=== PATIENT | female | born 1950 | race Caucasian/White ===

== ENCOUNTER 2016-09-09 07:54 | Day surgery (SDC) | payer OTHER ==
[~2016-09-09] VITALS: Ht 160 cm; Wt 72.7 kg
[~2016-09-09 07:54] MED LIST: MULT-65 PO; OXYC-360 PO
[2016-09-09 08:27] VITALS: BP 149/94; PULSE 82; RESP 20; TEMP 97.8; O2SAT 94
[2016-09-09] MEDS ORDERED: POVIDONE IODINE 5% (ANTISEPSIS KIT) 4 APPLICATIONS EACH NARE SCH (08:45)
[2016-09-09] MEDS ORDERED: ceFAZolin 2 GM PREMIX 50 ML - implanted port/tunneled catheter insertion IV SCH (08:45)
[2016-09-09] MEDS ORDERED: VANCOMYCIN 1000 MG/NS 250 ML - implanted port/tunneled catheter IV SCH ×2 (08:45)
[2016-09-09] MEDS ORDERED: SODIUM CHLORIDE 0.9% 1000 ML IV SCH (08:45)
[2016-09-09] MEDS ORDERED: CHLORHEXIDINE GLUCONATE 2 % 1 PACK (2 CLOTHS) TOPICAL SCH (08:45)
[2016-09-09] MEDS ORDERED: MIDAZOLAM HCL 5 MG/5 ML VIAL ONE (09:40)
[2016-09-09] MEDS ORDERED: fentaNYL CITRATE 250 MCG/5 ML AMP ONE (09:40)
[2016-09-09] MEDS ORDERED: LIDOCAINE 1%/EPINEPHrine 1:100,000 SOLN 20 ML VIAL ONE (09:58)
[2016-09-09 11:05] VITALS: BP 114/68; PULSE 80; RESP 16; TEMP 98.1; O2SAT 95
[2016-09-09 11:20] VITALS: BP 110/64; PULSE 78; RESP 18
--- NOTE | 2016-09-09 11:22 | PD.RAD ---
Post Procedure Progress Note Pre Procedure Diagnosis: (1) Lung cancer Post Procedure Diagnosis: (1) Lung cancer Procedure Date: Sep 09, 2016 Supervising Radiologist: Severino Centeno JR Proceduralist/Assist: Rajwinder De Anda, RT(R), Jethro Buchanan RT(R) Anesthesia: Conscious Sedation Plan of Activity Patient to Unit: ROPU Patient Condition: Good See PACS Report for procedural detail/treatment Central Venous Access Device Procedure 1 Right Internal Jugular Infusaport Placement single lumen [place]: 8 Findings: Port in good position and functions well. OK to use. Plan F/U with IR or a physician in 10-14 days for a site check Jr. Jacobo,Severino Tapia MD Sep 09, 2016 11:22
[2016-09-09] MEDS ORDERED: SODIUM CHLORIDE 0.9% FLUSH 5 ML FLUSH IVF PRN (11:30)
[2016-09-09 11:50] VITALS: BP 120/68; PULSE 85; RESP 18; O2SAT 93
[2016-09-09 12:20] VITALS: BP 101/66; PULSE 85; RESP 18; O2SAT 93
[2016-09-09 13:00] VITALS: BP 115/66; PULSE 85; RESP 18; O2SAT 93
--- NOTE | 2016-09-09 13:31 | RADRPT ---
EXAM DATE/TIME: 09/09/2016 08:41 [facility] COMPARISON: No previous studies available for comparison. INDICATIONS : Patient with history of lung cancer in need of port placement. MEDICAL HISTORY : 1.Lung cancer 2.Osteoporosis 3.Hemorrhoids SURGICAL HISTORY : 1.Right thoracotomy 2.Right upper lobectomy 3.Appendectomy 4.Hysterectomy 5.Cataract 6.Colonscopy ENCOUNTER: Initial ACUITY: 2 weeks PAIN SCORE: 0/10 FLUORO TIME: 0.6 minutes IMAGE SERIES: SEDATION TIME: 30 minutes ACCESS: Right internal jugular vein SEDATION: 1.) 5 mg midazolam (Versed) IV 2.) 250 mcg fentanyl (Sublimaze) IV Prophylactic antibiotics were administered with appropriate pre-procedure timing. Vancomycin within 2 hours of procedure, Ancef (or alternative) within 1 hour of procedure. DEVICE: 1. 8 Taiwanese single lumen Wufdlr-a-[id number] PROCEDURE : 1. Continuous pulse oximetry and EKG monitoring. 2. Intravenous conscious sedation. 3. Ultrasound guidance for venous access. 4. Fluoroscopic guided implantable central venous port placement. The patient was placed supine. The neck was prepped in sterile fashion. Full sterile technique was u sed, including cap, mask, sterile gloves and gown, and a large sterile sheet. Hand hygiene and 2% ch lorhexidine Betadine was utilized per protocol for cutaneous antisepsis with appropriate dry time for site. The skin and subcutaneous tissues were infiltrated with local anesthetic solution. Under direct ultrasound guidance, central venous access was accomplished in the targeted vessel. The ultrasound images depicting access guidance were stored and saved to PACS for permanent record. A s ubcutaneous pocket was created using blunt dissection. The port was introduced to the pocket. The c atheter tubing was fed through a subcutaneous tunnel to the venotomy site. The catheter tubing was c ut to a suitable length and then was introduced through a valved Peel-Away sheath and positioned with catheter tubing tip at the cavo-atrial junction level. The pocket incision was closed with subcutic ular Vicryl suture. Steri-Strips were applied. The port was flushed and locked with heparin solutio n per protocol. Sterile dressing was applied to the site. The patient tolerated the procedure well. Conscious sedation was performed with the prescribed dosages and duration as above in the presence of an independent trained radiology nurse to assist in the monitoring of the patient. EKG and oximetry remained stable throughout the procedure. The patient tolerated the procedure well and there were no complications. The patient was sent to post anesthesia recovery in stable condition. CONCLUSION: Uncomplicated ultrasound and fluoroscopic guided implanted central venous port catheter placement as described in detail above. An 8 Taiwanese Power port was placed. Severino Centeno Jr., MD on September 09, 2016 at 13:29 Board Certified Radiologist. This report was verified electronically.
== END 2016-09-09 13:20 | disposition home or self-care (01) ==
LOC: HROP 07:54 → HRIP 07:54 → HROP 13:20
PROVIDERS: ATTEND Internal Medicine Hematology & Oncology
DX: C34.11 Malignant neoplasm of upper lobe, right bronchus or lung (principal); M81.0 Age-related osteoporosis without current pathological fracture; Z90.2 Acquired absence of lung [part of]; Z87.891 Personal history of nicotine dependence
CPT/HCPCS: 36561; 76937; 77001; 99152; 99153; C1788; J0690; J1642; J2250; J3010; J3370; J7030; J7050

== ENCOUNTER 2016-12-01 06:14 | Day surgery (SDC) | payer OTHER ==
[~2016-12-01] VITALS: Ht 160 cm; Wt 72.7 kg
[2016-12-01 06:44] VITALS: BP 140/55; PULSE 85; RESP 20; TEMP 98.1; O2SAT 96
[2016-12-01] MEDS ORDERED: ceFAZolin 2 GM PREMIX 50 ML - implanted port removal IV SCH (07:45)
[2016-12-01] MEDS ORDERED: MIDAZOLAM HCL 2 MG/2 ML VIAL ONE ×2 (07:50→08:27)
[2016-12-01] MEDS ORDERED: SODIUM CHLORIDE 0.9% 1000 ML IV SCH (08:00)
[2016-12-01] MEDS ORDERED: LIDOCAINE 1%/EPINEPHrine 1:100,000 SOLN 20 ML VIAL ONE (08:05)
--- NOTE | 2016-12-01 08:40 | PD.RAD ---
Post Procedure Progress Note Pre Procedure Diagnosis: (1) Lung cancer Post Procedure Diagnosis: (1) Lung cancer Procedure Date: Dec 01, 2016 Supervising Radiologist: Dale Marcial Proceduralist/Assist: Halina Clement, RT(R), Eleni Bo RT(R)() Estimated blood loss: 0 ml Anesthesia: Conscious Sedation Plan of Activity Patient to Unit: ROPU Patient Condition: Good Additional Comments: port intact See PACS Report for procedural detail/treatment Dale Marcial MD Dec 01, 2016 08:40
[2016-12-01 08:50] VITALS: BP 128/63; PULSE 84; RESP 20; TEMP 98.4; O2SAT 97
--- NOTE | 2016-12-01 08:56 | RADRPT ---
EXAM DATE/TIME: 12/01/2016 00:00 [facility] COMPARISON: No previous studies available for comparison. INDICATIONS : Patient is in need of a removal of existing right sided Infusaport due to end of chemotherapy treatme nt for lung cancer. MEDICAL HISTORY : History of port placement, bilateral thoracotomy, appendectomy, colonoscopy, hysterectomy, cataract r emoval. SURGICAL HISTORY : History of osteoporosis, hemorrhoids. ENCOUNTER: Subsequent ACUITY: 7-11 months PAIN SCORE: 0/10 SEDATION TIME: 20 minutes 1.) 2 mg midazolam (Versed) IV 2.) 100 mcg fentanyl (Sublimaze) IV Vancomycin within 2 hrs of procedure, Ancef (or alternative) within 1 hr of procedure. PROCEDURE : 1. Removal of [id number]. 2. Conscious sedation with continuous EKG and oximetry monitoring. The risk, benefits and potential complications of [id number]-b-[id number] removal were discussed. Written conse nt was obtained. The patient was placed supine. The chest wall was prepped in sterile fashion. Full sterile techniqu e was used, including cap, mask, sterile gloves and gown, and a large sterile sheet. Hand hygiene an d 2% chlorhexidine and/or Betadine/alcohol prep was utilized per protocol for cutaneous antisepsis. The skin and subcutaneous tissues were infiltrated with local anesthetic solution. A small incision w as made, the subcutaneous pocket was opened. The port was dissected from the subcutaneous tissues and easily removed in one piece. The pocket incision was closed with subcuticular Vicryl suture. Steri -Strips were applied. Conscious sedation was performed with the prescribed dosages and duration as above in the presence of an independent trained radiology nurse to assist in the monitoring of the patient. EKG and oximetry remained stable throughout the procedure. The patient tolerated the procedure well and there were no complications. The patient was sent to post anesthesia recovery in stable condition. CONCLUSION: Uncomplicated port removal as above. Dale Marcial MD on December 01, 2016 at 8:53 Board Certified Radiologist. This report was verified electronically.
[2016-12-01 09:05] VITALS: BP 110/52; PULSE 81; RESP 20; O2SAT 97
[2016-12-01 09:20] VITALS: BP 133/66; PULSE 81; RESP 20; O2SAT 95
[2016-12-01 09:50] VITALS: BP 124/73; PULSE 82; RESP 18; O2SAT 96
== END 2016-12-01 11:00 | disposition home or self-care (01) ==
LOC: HROP 06:14 → HRIP 06:23 → HROP 11:00
PROVIDERS: ATTEND Internal Medicine Hematology & Oncology
DX: Z45.2 Encounter for adjustment and management of vascular access device (principal); C34.90 Malignant neoplasm of unspecified part of unspecified bronchus or lung; M81.0 Age-related osteoporosis without current pathological fracture
CPT/HCPCS: 36590; 99152; 99153; J2250; J3010; J7030